=== PATIENT | male | born 2000 | race Caucasian/White ===

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

== ENCOUNTER → 2021-02-15 | Outpatient (CLI) | payer OTHER ==
[~2021-02-15] MED LIST: IBU800 MG PO
== END | disposition home or self-care (01) ==
LOC: COVID19 17:40
PROVIDERS: ATTEND Podiatrist Foot & Ankle Surgery
DX: Z20.822 Contact with and (suspected) exposure to COVID-19 (principal)

== ENCOUNTER 2022-05-23 01:49 | Emergency (ER) | payer OTHER ==
[~2022-05-23] VITALS: Ht 170.1 cm; Wt 49.9 kg
[2022-05-23] MEDS ORDERED: AMOX-CLAV 875-1 EACH PO (03:36)
== END 2022-05-23 03:43 | disposition home or self-care (01) ==
LOC: ED 01:49
DX: S09.90XA Unspecified injury of head, initial encounter (principal); S29.9XXA Unspecified injury of thorax, initial encounter; R04.0 Epistaxis; J32.9 Chronic sinusitis, unspecified; Z87.891 Personal history of nicotine dependence; Y08.89XA Assault by other specified means, initial encounter; Y93.89 Activity, other specified; Y92.009 Unspecified place in unspecified non-institutional (private) residence as the place of occurrence of the external cause; Y99.8 Other external cause status

== ENCOUNTER 2024-01-28 16:19 | Emergency (ER) | payer OTHER ==
[~2024-01-28] VITALS: Ht 172.7 cm; Wt 54.4 kg
[~2024-01-28 16:19] MED LIST changes: +AMOX-CLAV 875-1 EACH PO
[2024-01-28] MEDS ORDERED: CLINDAMYCIN PHO60 ML T (16:44)
[2024-01-28] MEDS ORDERED: SULFAMETHOXAZOLE-TRI PO (16:45)
[2024-01-28] MEDS ORDERED: PREDNISONE20 M1 PO (16:57)
[2024-01-28] MEDS ORDERED: methylPREDNISolone sod succ 125 MG VIAL IM ONE (17:00)
== END 2024-01-28 17:18 | disposition home or self-care (01) ==
LOC: ED 16:19
DX: L27.0 Generalized skin eruption due to drugs and medicaments taken internally (principal); T36.8X5A Adverse effect of other systemic antibiotics, initial encounter; Y92.89 Other specified places as the place of occurrence of the external cause